=== PATIENT | male | born 1975 | race African-American/Black ===

== ENCOUNTER 2019-06-18 13:44 | Inpatient (IN) | payer MEDICAID ==
[~2019-06-18] VITALS: Ht 162.6 cm; Wt 58.1 kg
[2019-06-18] MEDS ORDERED: SODIUM CHLORIDE 0.9% 1,000 ML IV ONE (14:09)
[2019-06-18] MEDS ORDERED: LORAZEPAM 2MG/ML CPJ IV ONE ×3 (14:15→17:00)
[2019-06-18] MEDS ORDERED: LEVETIRACETAM 500MG PREMIX 100 ML IV ONE (14:30)
[2019-06-18] MEDS ORDERED: LORAZEPAM 2MG/ML CPJ IM STA (15:13)
[2019-06-18 15:55] LABS: HEMATOCRIT. 38.8 % (42.0-52.0); HEMOGLOBIN. 13.1 g/dL (14.0-18.0); MEAN CORPUSCULAR HEMOGLOBIN 33.9 pg (28.0-32.0); MEAN CORPUSCULAR VOLUME 100.5 fL (80.0-94.0); MEAN PLATELET VOLUME 9.1 fl (7.4-10.4); PLATELET 347 x1000/uL (130-400); RED BLOOD CELL COUNT 3.86 mill/uL (4.7-6.1); RED CELL DISTRIBUTION WIDTH 14.2 % (11.6-14.6)
[2019-06-18 16:00] LABS: CHLORIDE 112 mEq/L (98-107)
[2019-06-18 16:04] LABS: ETHANOL BLOOD < 10 mg/dL
[2019-06-18 16:13] LABS: CARBAMAZEPINE < 0.5 ug/mL (4-12); PHENOBARBITAL < 2.1 ug/mL (15.0-40.0); VALPROIC ACID < 3.0 ug/mL (50-100)
[2019-06-18 16:14] LABS: PLATELET ESTIMATE NORMAL
[2019-06-18] MEDS ORDERED: SODIUM CHLORIDE 0.9% 1000ML BAG (SEPSIS BOLUS) IV ONE (16:30)
[2019-06-18] MEDS ORDERED: ACYCLOVIR INJ 750 MG in DEXT 5% WATER 125 ML IV STA (16:50)
[2019-06-18] MEDS ORDERED: VANCOMYCIN 1 G PREMIX 200 ML IV STA (16:50)
[2019-06-18] MEDS ORDERED: HALOPERIDOL LACTATE 5MG/ML VIAL IM ONE (17:00)
[2019-06-18] MEDS ORDERED: CEFTRIAXONE 2 G PREMIX 50 ML IV ONE (17:00)
[2019-06-18] MEDS ORDERED: DEXAMETHASONE 10 MG/ML VIAL IV ONE (17:15)
[2019-06-18] MEDS ORDERED: DIPHENHYDRAMINE 50MG/ML VIAL ONE (17:27)
[2019-06-18] MEDS ORDERED: DIPHENHYDRAMINE 50MG/ML VIAL IV ONE (17:45)
[2019-06-18 18:00] LABS: CLARITY URINE TURBID (CLEAR); COLOR URINE YELLOW (YELLOW); KETONES URINE 1+ (NEGATIVE); LEUKOCYTE ESTERASE URINE NEGATIVE (NEGATIVE); NITRITE URINE NEGATIVE (NEGATIVE); OCCULT BLOOD URINE NEGATIVE (NEGATIVE); PROTEIN URINE NEGATIVE (NEGATIVE); SPECIFIC GRAVITY URINE 1.013 (1.005-1.030); UROBILINOGEN URINE 0.2 E.U./dL (0.2-1.0)
[2019-06-18 18:10] LABS: *AMPHETAMINES SCREEN URINE NEGATIVE (NEGATIVE); *BARBITURATES SCREEN URINE NEGATIVE (NEGATIVE); *BENZODIAZEPINES SCREEN URINE PRESUMTIVE POSITIVE (NEGATIVE); *COCAINE SCREEN URINE NEGATIVE (NEGATIVE); GLUCOSE CSF 101 mg/dL (41-75)
[2019-06-18 18:11] LABS: CANNABINOID URINE SCREEN PRESUMTIVE POSITIVE (NEGATIVE); METHADONE URINE SCREEN NEGATIVE (NEGATIVE); OPIATES URINE SCREEN PRESUMTIVE POSITIVE (NEGATIVE); PHENCYCLIDINE URINE SCREEN NEGATIVE (NEGATIVE)
[2019-06-18] MEDS ORDERED: CEFTRIAXONE 2 G in DEXTROSE 5% WATER 50 ML IV SCH (18:15)
[2019-06-18] MEDS ORDERED: DOCUSATE SODIUM 100MG CAPSULE PO PRN (20:15)
[2019-06-18] MEDS ORDERED: IPRATROPIUM/ALBUTEROL 0.5-3(2.5)MG/3ML NEB HHN PRN (20:15)
[2019-06-18] MEDS ORDERED: CLONIDINE 0.1MG TABLET PO PRN (20:15)
[2019-06-18] MEDS ORDERED: ACYCLOVIR INJ 500 MG in DEXT 5% WATER 100 ML IV SCH (20:15)
[2019-06-18] MEDS ORDERED: ONDANSETRON HCL 4MG/2ML INJ IV PRN (20:15)
[2019-06-18] MEDS ORDERED: LEVETIRACETAM 500 MG in SODIUM CHLORIDE 0.9% 100 ML IV SCH (20:15)
[2019-06-18] MEDS ORDERED: ACETAMINOPHEN 325MG TABLET PO PRN (20:15)
[2019-06-19] VITALS (9 sets, daily range): BP systolic 107–149; BP diastolic 57–85
[2019-06-19] MEDS: LORAZEPAM 2MG/ML CPJ IV PRN ×2 (00:56→02:59)
[2019-06-19] MEDS ORDERED: VANCOMYCIN 1250MG in DEXTROSE 5% WATER 250ML IV SCH (02:00)
[2019-06-19] MEDS: ACYCLOVIR INJ 500 MG in DEXT 5% WATER 100 ML IV SCH ×3 (02:59→17:58)
[2019-06-19 07:05] LABS: HEMATOCRIT. 35.7 % (42.0-52.0); HEMOGLOBIN. 12.2 g/dL (14.0-18.0); MEAN PLATELET VOLUME 9.6 fl (7.4-10.4); PLATELET 327 x1000/uL (130-400); RED CELL DISTRIBUTION WIDTH 14.5 % (11.6-14.6)
[2019-06-19] MEDS: LEVETIRACETAM 500 MG in SODIUM CHLORIDE 0.9% 100 ML IV SCH ×2 (10:32→21:36)
[2019-06-19] MEDS ORDERED: LACTULOSE 20G/30ML UDC PO NR (12:30)
[2019-06-19 12:59] LABS: CHLORIDE 106 mEq/L (98-107)
[2019-06-19] MEDS ORDERED: VANCOMYCIN 1 G PREMIX 200 ML IV SCH (14:00)
[2019-06-19] MEDS: CEFTRIAXONE 2 G in DEXTROSE 5% WATER 50 ML IV SCH (14:10)
[2019-06-19] MEDS: ENOXAPARIN 40MG/0.4ML SYR SUBCUT SCH (14:11)
[2019-06-19 14:20] LABS: PLATELET ESTIMATE NORMAL
[2019-06-19] MEDS: VANCOMYCIN 1250MG in DEXTROSE 5% WATER 250ML IV SCH ×2 (19:00→23:48)
[2019-06-20] VITALS (12 sets, daily range): BP systolic 96–134; BP diastolic 52–95
[2019-06-20] MEDS: CEFTRIAXONE 2 G in DEXTROSE 5% WATER 50 ML IV SCH ×2 (01:32→13:51)
[2019-06-20] MEDS ORDERED: KEPP500 PO (01:51)
[2019-06-20] MEDS: ACYCLOVIR INJ 500 MG in DEXT 5% WATER 100 ML IV SCH ×3 (02:13→17:15)
[2019-06-20] MEDS: VANCOMYCIN 1250MG in DEXTROSE 5% WATER 250ML IV SCH (06:49)
[2019-06-20 08:03] LABS: BASOPHILS % 0.4 % (0.0-2.0); EOSINOPHILS % 0.1 % (0.0-5.0); HEMOGLOBIN. 13.2 g/dL (14.0-18.0); LYMPHOCYTES % 18.6 % (20.0-50.0); MEAN CORPUSCULAR HEMOGLOBIN 33.6 pg (28.0-32.0); MEAN CORPUSCULAR VOLUME 99.3 fL (80.0-94.0); MEAN PLATELET VOLUME 9.7 fl (7.4-10.4); MONOCYTES % 7.2 % (2.0-8.0); NEUTROPHILS % 73.7 % (40.0-76.0); PLATELET 318 x1000/uL (130-400); RED BLOOD CELL COUNT 3.93 mill/uL (4.7-6.1); RED CELL DISTRIBUTION WIDTH 14.1 % (11.6-14.6)
[2019-06-20 08:06] LABS: CHLORIDE 105 mEq/L (98-107)
[2019-06-20 08:07] LABS: HIV SCREEN 4G Non Reactive (Non Reactive)
[2019-06-20] MEDS: ENOXAPARIN 40MG/0.4ML SYR SUBCUT SCH (09:32)
[2019-06-20] MEDS: LEVETIRACETAM 500 MG in SODIUM CHLORIDE 0.9% 100 ML IV SCH ×2 (09:32→21:36)
[2019-06-20] MEDS: LACTULOSE 20G/30ML UDC PO SCH ×2 (13:51→22:06)
[2019-06-20] MEDS: VANCOMYCIN 1 G PREMIX 200 ML IV SCH (18:50)
[2019-06-20 18:52] LABS: HEPATITIS B SURFACE ANTIGEN NEGATIVE
[2019-06-20 18:56] LABS: CREATINE KINASE 11522 IU/L (39-308)
[2019-06-20 19:22] LABS: HEPATITIS A AB IGM NEGATIVE (NEGATIVE)
[2019-06-20] MEDS: HYDROCODONE/ACETAMINOPHEN 5/325MG TABLET PO PRN (21:37)
[2019-06-21] VITALS (9 sets, daily range): BP systolic 104–128; BP diastolic 64–84
[2019-06-21] MEDS: CEFTRIAXONE 2 G in DEXTROSE 5% WATER 50 ML IV SCH ×2 (00:33→16:41)
[2019-06-21] MEDS: ACYCLOVIR INJ 500 MG in DEXT 5% WATER 100 ML IV SCH ×3 (02:34→17:35)
[2019-06-21] MEDS: HYDROCODONE/ACETAMINOPHEN 5/325MG TABLET PO PRN (02:34)
[2019-06-21] MEDS: VANCOMYCIN 1 G PREMIX 200 ML IV SCH ×3 (04:55→18:47)
[2019-06-21] MEDS: LACTULOSE 20G/30ML UDC PO SCH ×3 (05:07→21:29)
[2019-06-21 07:02] LABS: CHLORIDE 108 mEq/L (98-107)
[2019-06-21 07:09] LABS: BASOPHILS % 0.3 % (0.0-2.0); EOSINOPHILS % 0.7 % (0.0-5.0); HEMATOCRIT. 34.2 % (42.0-52.0); HEMOGLOBIN. 11.8 g/dL (14.0-18.0); MEAN CORPUSCULAR HEMOGLOBIN 34.1 pg (28.0-32.0); MEAN CORPUSCULAR VOLUME 98.6 fL (80.0-94.0); MEAN PLATELET VOLUME 8.8 fl (7.4-10.4); MONOCYTES % 11.4 % (2.0-8.0); NEUTROPHILS % 51.6 % (40.0-76.0); PLATELET 295 x1000/uL (130-400); RED BLOOD CELL COUNT 3.47 mill/uL (4.7-6.1)
[2019-06-21] MEDS: ENOXAPARIN 40MG/0.4ML SYR SUBCUT SCH (09:48)
[2019-06-21] MEDS: SODIUM CHLORIDE 0.9% 1,000 ML IV SCH ×2 (09:56→19:30)
[2019-06-21] MEDS: CITRIC ACID/SODIUM CITRATE SOLN 15ML UDC PO SCH ×3 (10:00→21:30)
[2019-06-21] MEDS ORDERED: POTASSIUM CHLORIDE 20MEQ TABLET SR PO NR (10:00)
[2019-06-21] MEDS: LEVETIRACETAM 500 MG in SODIUM CHLORIDE 0.9% 100 ML IV SCH (11:02)
[2019-06-21 12:12] LABS: CREATINE KINASE 12494 IU/L (39-308)
[2019-06-21] MEDS ORDERED: LEVETIRACETAM 500MG TABLET PO SCH (21:00)
[2019-06-21] MEDS: LEVETIRACETAM 250MG TABLET PO SCH (21:30)
[2019-06-22] VITALS (12 sets, daily range): BP systolic 116–143; BP diastolic 67–87
[2019-06-22] MEDS: SODIUM CHLORIDE 0.9% 1,000 ML IV SCH ×3 (01:30→17:02)
[2019-06-22] MEDS: LACTULOSE 20G/30ML UDC PO SCH ×3 (05:56→22:40)
[2019-06-22] MEDS: CITRIC ACID/SODIUM CITRATE SOLN 15ML UDC PO SCH ×2 (05:56→22:40)
[2019-06-22 06:42] LABS: BASOPHILS % 0.9 % (0.0-2.0); EOSINOPHILS % 1.3 % (0.0-5.0); HEMATOCRIT. 33.6 % (42.0-52.0); HEMOGLOBIN. 11.9 g/dL (14.0-18.0); LYMPHOCYTES % 34.1 % (20.0-50.0); MEAN CORPUSCULAR HEMOGLOBIN 34.6 pg (28.0-32.0); MEAN CORPUSCULAR VOLUME 97.7 fL (80.0-94.0); MEAN PLATELET VOLUME 9.1 fl (7.4-10.4); MONOCYTES % 10.6 % (2.0-8.0); NEUTROPHILS % 53.1 % (40.0-76.0); PLATELET 295 x1000/uL (130-400); RED BLOOD CELL COUNT 3.44 mill/uL (4.7-6.1); RED CELL DISTRIBUTION WIDTH 13.5 % (11.6-14.6)
[2019-06-22 07:31] LABS: CHLORIDE 107 mEq/L (98-107)
[2019-06-22 07:41] LABS: PHOSPHORUS 3.1 mg/dL (2.5-4.9)
[2019-06-22] MEDS: LEVETIRACETAM 250MG TABLET PO SCH ×2 (09:57→22:40)
[2019-06-22] MEDS: ENOXAPARIN 40MG/0.4ML SYR SUBCUT SCH (09:58)
[2019-06-22 20:06] LABS: FOLIC ACID (FOLATE) SERUM 14.5 ng/mL (>5.38)
[2019-06-23] VITALS (10 sets, daily range): BP systolic 55–127; BP diastolic 32–98
[2019-06-23] MEDS: SODIUM CHLORIDE 0.9% 1,000 ML IV SCH ×2 (01:27→09:23)
[2019-06-23] MEDS: LACTULOSE 20G/30ML UDC PO SCH ×2 (07:03→14:00)
[2019-06-23 07:54] LABS: BASOPHILS % 0.5 % (0.0-2.0); EOSINOPHILS % 2.6 % (0.0-5.0); HEMATOCRIT. 35.4 % (42.0-52.0); HEMOGLOBIN. 12.2 g/dL (14.0-18.0); LYMPHOCYTES % 39.7 % (20.0-50.0); MEAN CORPUSCULAR HEMOGLOBIN 34.1 pg (28.0-32.0); MEAN CORPUSCULAR VOLUME 99.1 fL (80.0-94.0); MEAN PLATELET VOLUME 9.1 fl (7.4-10.4); MONOCYTES % 11.9 % (2.0-8.0); NEUTROPHILS % 45.3 % (40.0-76.0); PLATELET 301 x1000/uL (130-400); RED BLOOD CELL COUNT 3.57 mill/uL (4.7-6.1); RED CELL DISTRIBUTION WIDTH 13.8 % (11.6-14.6)
[2019-06-23 08:13] LABS: CHLORIDE 108 mEq/L (98-107)
[2019-06-23 08:23] LABS: PHOSPHORUS 3.6 mg/dL (2.5-4.9)
[2019-06-23 08:39] LABS: CREATINE KINASE 4940 IU/L (39-308)
[2019-06-23] MEDS: CITRIC ACID/SODIUM CITRATE SOLN 15ML UDC PO SCH ×2 (09:00→09:23)
[2019-06-23] MEDS: LEVETIRACETAM 250MG TABLET PO SCH (09:23)
[2019-06-23] MEDS: ENOXAPARIN 40MG/0.4ML SYR SUBCUT SCH (09:23)
[2019-06-23] MEDS ORDERED: CYANOCOBALAMIN 1000MCG/ML VIAL IM NR (12:30)
[2019-06-23] MEDS ORDERED: SORBITOL 70% SOLN 30ML PO PRN (12:45)
[2019-06-23] MEDS ORDERED: MAGNESIUM 2 G PREMIX 50 ML IV NR (13:30)
[2019-06-23] MEDS ORDERED: LEVE750T66 MT (16:36)
[2019-06-23] MEDS ORDERED: LEVE250T2 MT (16:43)
== END 2019-06-23 17:52 | disposition home or self-care (01) | DRG 720 ==
LOC: ER 13:44 → 5EST 17:08 → ENRESERV 18:39 → 5EST 22:53
PROVIDERS: ADMIT Internal Medicine; ATTEND Internal Medicine
DX: A41.9 Sepsis, unspecified organism (principal); G92 Toxic encephalopathy; E87.2 Acidosis; E44.0 Moderate protein-calorie malnutrition; M62.82 Rhabdomyolysis; E83.42 Hypomagnesemia; G40.409 Other generalized epilepsy and epileptic syndromes, not intractable, without status epilepticus; D53.9 Nutritional anemia, unspecified; K72.90 Hepatic failure, unspecified without coma; R74.0 Nonspecific elevation of levels of transaminase and lactic acid dehydrogenase [LDH]; E53.8 Deficiency of other specified B group vitamins; E87.6 Hypokalemia; F12.90 Cannabis use, unspecified, uncomplicated; Z78.1 Physical restraint status; Z79.899 Other long term (current) drug therapy; Z82.49 Family history of ischemic heart disease and other diseases of the circulatory system; Z91.14 Patient's other noncompliance with medication regimen; Z68.22 Body mass index [BMI] 22.0-22.9, adult
CPT/HCPCS: 36415; 70551; 71045; 76700; 80048; 80076; 80156; 80165; 80184; 80185; 80202; 80305; 80320; 81003; 82140; 82550; 82607; 82746; 82945; 83605; 83735; 84100; 84145; 84157; 84484; 86705; 86709; 86803; 87070; 87340; 87389; 87529; 93005; 93970; 99291; J0133; J0696; J1100; J1200; J1630; J1650; J1953; J2060; J3370; J3420; J3475; J7030; J7040; J7050; J7060; G0480

== ENCOUNTER 2020-12-01 18:41 | Emergency (ER) | payer MEDICAID ==
[~2020-12-01] VITALS: Ht 185.4 cm; Wt 80.0 kg
[~2020-12-01 18:41] MED LIST: LEVE250T2 MT
[2020-12-01] MEDS ORDERED: LEVETIRACETAM 1000MG PREMIX 100 ML IV ONE (21:00)
[2020-12-01 21:56] LABS: BASOPHILS % 0.3 % (0.0-2.0); EOSINOPHILS % 0.1 % (0.0-5.0); HEMATOCRIT. 34.8 % (42.0-52.0); HEMOGLOBIN. 12.1 g/dL (14.0-18.0); LYMPHOCYTES % 16.1 % (20.0-50.0); MEAN CORPUSCULAR HEMOGLOBIN 34.3 pg (28.0-32.0); MEAN CORPUSCULAR VOLUME 98.7 fL (80.0-94.0); MEAN PLATELET VOLUME 8.3 fl (7.4-10.4); MONOCYTES % 6.3 % (2.0-8.0); NEUTROPHILS % 77.2 % (40.0-76.0); PLATELET 330 x1000/uL (130-400); RED BLOOD CELL COUNT 3.52 mill/uL (4.7-6.1); RED CELL DISTRIBUTION WIDTH 14.5 % (11.6-14.6)
[2020-12-01 22:03] LABS: CHLORIDE 107 mEq/L (98-107)
[2020-12-01 22:07] LABS: ETHANOL BLOOD < 10 mg/dL
[2020-12-01 22:45] LABS: CLARITY URINE CLEAR (CLEAR); COLOR URINE YELLOW (YELLOW); KETONES URINE TRACE (NEGATIVE); LEUKOCYTE ESTERASE URINE NEGATIVE (NEGATIVE); NITRITE URINE NEGATIVE (NEGATIVE); OCCULT BLOOD URINE NEGATIVE (NEGATIVE); PH URINE 6.5 (4.5-8.0); PROTEIN URINE 1+ (NEGATIVE); UROBILINOGEN URINE 0.2 E.U./dL (0.2-1.0)
[2020-12-01] MEDS ORDERED: KEPP500 MT (22:49)
[2020-12-01 22:55] LABS: *AMPHETAMINES SCREEN URINE NEGATIVE (NEGATIVE); *BARBITURATES SCREEN URINE NEGATIVE (NEGATIVE); *BENZODIAZEPINES SCREEN URINE NEGATIVE (NEGATIVE); *COCAINE SCREEN URINE NEGATIVE (NEGATIVE); CANNABINOID URINE SCREEN PRESUMTIVE POSITIVE (NEGATIVE); METHADONE URINE SCREEN NEGATIVE (NEGATIVE); OPIATES URINE SCREEN NEGATIVE (NEGATIVE); PHENCYCLIDINE URINE SCREEN NEGATIVE (NEGATIVE)
[2020-12-02 00:15] VITALS: BP 117/80
== END 2020-12-02 00:53 | disposition home or self-care (01) ==
LOC: ER 18:41
DX: G40.909 Epilepsy, unspecified, not intractable, without status epilepticus (principal); Z79.899 Other long term (current) drug therapy
CPT/HCPCS: 36415; 80053; 80305; 80320; 81003; 85025; 96365; 99284; J1953; G0480

== ENCOUNTER 2021-02-28 11:10 | Emergency (ER) | payer MEDICAID ==
[~2021-02-28] VITALS: Ht 172.7 cm; Wt 72.0 kg
[~2021-02-28 11:10] MED LIST changes: +KEPP500 MT
[2021-02-28] MEDS ORDERED: TETANUS, DIPHTHERIA, PERTUSSIS VAC/PF 0.5ML (>7YR OLD) IM ONE (11:30)
[2021-02-28] MEDS ORDERED: HYDROCODONE/ACETAMINOPHEN 5/325MG TABLET PO ONE (11:30)
[2021-02-28] MEDS ORDERED: ONDANSETRON 4MG ODT PO ONE (11:30)
[2021-02-28] MEDS ORDERED: BACITRACIN 15GM TUBE TOP ONE (14:15)
[2021-02-28] MEDS ORDERED: BACITRACIN ZINC OINT UDPKT TOP SCH (14:15)
[2021-02-28] MEDS ORDERED: IBUP-2029 MT (15:54)
[2021-02-28] MEDS ORDERED: BO1 TP (15:54)
[2021-02-28] MEDS ORDERED: HYDR-4346 MT (15:54)
[2021-02-28 16:10] VITALS: BP 122/74
== END 2021-02-28 16:13 | disposition home or self-care (01) ==
LOC: ER 12:00
DX: S40.812A Abrasion of left upper arm, initial encounter (principal); R07.89 Other chest pain; M54.5 Low back pain; S89.82XA Other specified injuries of left lower leg, initial encounter; S50.312A Abrasion of left elbow, initial encounter; S49.82XA Other specified injuries of left shoulder and upper arm, initial encounter; S50.812A Abrasion of left forearm, initial encounter; M25.552 Pain in left hip; M79.642 Pain in left hand; G89.11 Acute pain due to trauma; R26.89 Other abnormalities of gait and mobility; R03.0 Elevated blood-pressure reading, without diagnosis of hypertension; Z23 Encounter for immunization; G40.909 Epilepsy, unspecified, not intractable, without status epilepticus; V06.1 Pedestrian injured in collision with other nonmotor vehicle in traffic accident; Y93.I9 Activity, other involving external motion; Y92.488 Other paved roadways as the place of occurrence of the external cause
CPT/HCPCS: 70450; 71250; 72100; 72125; 73030; 73080; 73090; 73130; 73502; 73552; 73560; 73590; 90471; 90715; 93005; 99285; L1830; Q0162; Z7610

== ENCOUNTER 2021-04-21 15:58 | Emergency (ER) | payer MEDICAID ==
[~2021-04-21] VITALS: Ht 177.8 cm; Wt 75.0 kg
[~2021-04-21 15:58] MED LIST changes: +BO1 TP; +HYDR-4346 MT; +IBUP-2029 MT
[2021-04-21] MEDS ORDERED: LORAZEPAM 1MG TABLET PO ONE (16:45)
[2021-04-21] MEDS ORDERED: LEVETIRACETAM 1000MG PREMIX 100 ML IV ONE (16:45)
[2021-04-21 17:13] LABS: HEMATOCRIT. 38.5 % (42.0-52.0); HEMOGLOBIN. 12.8 g/dL (14.0-18.0); MEAN CORPUSCULAR HEMOGLOBIN 33.8 pg (28.0-32.0); MEAN CORPUSCULAR VOLUME 101.7 fL (80.0-94.0); MEAN PLATELET VOLUME 9.3 fl (7.4-10.4); PLATELET 290 x1000/uL (130-400); RED BLOOD CELL COUNT 3.78 mill/uL (4.7-6.1); RED CELL DISTRIBUTION WIDTH 14.8 % (11.6-14.6)
[2021-04-21 17:22] LABS: CHLORIDE 106 mEq/L (98-107)
[2021-04-21 17:40] LABS: PLATELET ESTIMATE NORMAL
[2021-04-21] MEDS ORDERED: IBUP-2029 MT (19:09)
[2021-04-21] MEDS ORDERED: IBUPROFEN 600MG TABLET PO ONE (19:15)
[2021-04-21 19:45] VITALS: BP 123/78
== END 2021-04-21 19:50 | disposition home or self-care (01) ==
LOC: ER 15:58
DX: G40.509 Epileptic seizures related to external causes, not intractable, without status epilepticus (principal); I49.9 Cardiac arrhythmia, unspecified
CPT/HCPCS: 36415; 80053; 85025; 93005; 96374; 99284; J1953

== ENCOUNTER 2021-09-16 12:29 | Emergency (ER) | payer MEDICAID, OTHER ==
[~2021-09-16] VITALS: Ht 170.2 cm; Wt 75.0 kg
[2021-09-16] MEDS ORDERED: LEVETIRACETAM 500MG PREMIX 200 ML IV ONE (13:15)
[2021-09-16] MEDS ORDERED: SODIUM CHLORIDE 0.9% 1,000 ML IV ONE (13:15)
[2021-09-16 15:54] LABS: HEMATOCRIT. 37.6 % (42.0-52.0); HEMOGLOBIN. 12.8 g/dL (14.0-18.0); MEAN CORPUSCULAR HEMOGLOBIN 33.4 pg (28.0-32.0); MEAN CORPUSCULAR VOLUME 98.3 fL (80.0-94.0); MEAN PLATELET VOLUME 7.9 fl (7.4-10.4); PLATELET 535 x1000/uL (130-400); RED BLOOD CELL COUNT 3.83 mill/uL (4.7-6.1); RED CELL DISTRIBUTION WIDTH 13.6 % (11.6-14.6)
[2021-09-16 15:56] LABS: CHLORIDE 108 mEq/L (98-107)
[2021-09-16 16:03] LABS: ETHANOL BLOOD < 10 mg/dL
[2021-09-16 16:06] LABS: CREATINE KINASE 491 IU/L (39-308)
[2021-09-16 16:16] LABS: PLATELET ESTIMATE INCREASED
[2021-09-16 18:30] VITALS: BP 134/87
[2021-09-16 18:39] LABS: CLARITY URINE CLEAR (CLEAR); COLOR URINE YELLOW (YELLOW); KETONES URINE NEGATIVE (NEGATIVE); LEUKOCYTE ESTERASE URINE NEGATIVE (NEGATIVE); NITRITE URINE NEGATIVE (NEGATIVE); OCCULT BLOOD URINE NEGATIVE (NEGATIVE); PROTEIN URINE TRACE (NEGATIVE); SPECIFIC GRAVITY URINE 1.006 (1.005-1.030); UROBILINOGEN URINE 0.2 E.U./dL (0.2-1.0)
[2021-09-16 18:54] LABS: METHADONE URINE SCREEN NEGATIVE (NEGATIVE); OPIATES URINE SCREEN NEGATIVE (NEGATIVE)
[2021-09-16 18:55] LABS: *AMPHETAMINES SCREEN URINE NEGATIVE (NEGATIVE); *BARBITURATES SCREEN URINE NEGATIVE (NEGATIVE); *BENZODIAZEPINES SCREEN URINE PRESUMTIVE POSITIVE (NEGATIVE); *COCAINE SCREEN URINE NEGATIVE (NEGATIVE); CANNABINOID URINE SCREEN PRESUMTIVE POSITIVE (NEGATIVE); PHENCYCLIDINE URINE SCREEN NEGATIVE (NEGATIVE)
== END 2021-09-16 19:30 | disposition home or self-care (01) ==
LOC: ER 12:29
DX: R56.9 Unspecified convulsions (principal); Z91.14 Patient's other noncompliance with medication regimen; D53.9 Nutritional anemia, unspecified
CPT/HCPCS: 36415; 70450; 71045; 80053; 80305; 80307; 80320; 80329; 81003; 82140; 82550; 82962; 85025; 96365; 99285; J1953; J7030; G0480

== ENCOUNTER 2022-03-03 14:44 | Inpatient (IN) | payer MEDICAID, OTHER ==
[~2022-03-03] VITALS: Ht 165.1 cm; Wt 61.2 kg
[2022-03-03] MEDS ORDERED: MIDAZOLAM HCL 2 MG/2 ML VIAL IM ONE (15:30)
[2022-03-03] MEDS ORDERED: LEVETIRACETAM 500MG PREMIX 100 ML IV ONE ×2 (15:30)
[2022-03-03 15:39] LABS: HEMATOCRIT. 44.1 % (42.0-52.0); HEMOGLOBIN. 14.5 g/dL (14.0-18.0); MEAN CORPUSCULAR HEMOGLOBIN 33.8 pg (28.0-32.0); MEAN CORPUSCULAR VOLUME 102.7 fL (80.0-94.0); MEAN PLATELET VOLUME 8.9 fl (7.4-10.4); PLATELET 382 x1000/uL (130-400); RED BLOOD CELL COUNT 4.29 mill/uL (4.7-6.1)
[2022-03-03 15:48] LABS: CHLORIDE 108 mEq/L (98-107)
[2022-03-03 15:57] LABS: ETHANOL BLOOD < 10 mg/dL
[2022-03-03 16:13] LABS: CARBAMAZEPINE < 0.5 ug/mL (4-12)
[2022-03-03] MEDS ORDERED: SODIUM CHLORIDE 0.9% 1,000 ML IV ONE (16:30)
[2022-03-03 16:52] LABS: PLATELET ESTIMATE NORMAL
[2022-03-03] MEDS: LEVETIRACETAM 500MG PREMIX 100 ML IV NR ×3 (17:50→18:53)
[2022-03-03] MEDS ORDERED: DIPHENHYDRAMINE 50MG/ML VIAL IM ONE (18:00)
[2022-03-03] MEDS ORDERED: HALOPERIDOL LACTATE 5MG/ML VIAL IM ONE (18:00)
[2022-03-03 19:54] LABS: CLARITY URINE CLOUDY (CLEAR); COLOR URINE YELLOW (YELLOW); KETONES URINE 1+ (NEGATIVE); LEUKOCYTE ESTERASE URINE NEGATIVE (NEGATIVE); NITRITE URINE NEGATIVE (NEGATIVE); OCCULT BLOOD URINE 1+ (NEGATIVE); PH URINE 5.5 (4.5-8.0); PROTEIN URINE 1+ (NEGATIVE); SPECIFIC GRAVITY URINE 1.009 (1.005-1.030); UROBILINOGEN URINE 0.2 E.U./dL (0.2-1.0)
[2022-03-03 20:06] LABS: *AMPHETAMINES SCREEN URINE NEGATIVE (NEGATIVE); *BARBITURATES SCREEN URINE NEGATIVE (NEGATIVE); *BENZODIAZEPINES SCREEN URINE PRESUMTIVE POSITIVE (NEGATIVE); *COCAINE SCREEN URINE NEGATIVE (NEGATIVE); CANNABINOID URINE SCREEN PRESUMTIVE POSITIVE (NEGATIVE); METHADONE URINE SCREEN NEGATIVE (NEGATIVE); OPIATES URINE SCREEN NEGATIVE (NEGATIVE); PHENCYCLIDINE URINE SCREEN NEGATIVE (NEGATIVE)
[2022-03-04] VITALS: BP 112/70
[2022-03-04 04:00] VITALS: BP 109/64
[2022-03-04 07:44] LABS: BASOPHILS % 0.1 % (0.0-2.0); HEMATOCRIT. 41.9 % (42.0-52.0); HEMOGLOBIN. 13.7 g/dL (14.0-18.0); LYMPHOCYTES % 8.3 % (20.0-50.0); MEAN CORPUSCULAR HEMOGLOBIN 33.2 pg (28.0-32.0); MEAN CORPUSCULAR VOLUME 101.4 fL (80.0-94.0); MEAN PLATELET VOLUME 8.4 fl (7.4-10.4); MONOCYTES % 5.2 % (2.0-8.0); NEUTROPHILS % 86.4 % (40.0-76.0); PLATELET 310 x1000/uL (130-400); RED BLOOD CELL COUNT 4.13 mill/uL (4.7-6.1)
[2022-03-04 08:00] VITALS: BP 118/74
[2022-03-04 08:07] LABS: CHLORIDE 105 mEq/L (98-107)
[2022-03-04] MEDS: ENOXAPARIN 40MG/0.4ML SYR SUBCUT SCH (08:38)
[2022-03-04] MEDS: LEVETIRACETAM 500MG TABLET PO SCH ×2 (08:38→17:55)
[2022-03-04 12:00] VITALS: BP 117/80
[2022-03-04 16:00] VITALS: BP 115/75
[2022-03-04 20:00] VITALS: BP 123/79
[2022-03-05] VITALS: BP 117/75
[2022-03-05 04:00] VITALS: BP 108/75
[2022-03-05 08:00] VITALS: BP 118/74
[2022-03-05] MEDS ORDERED: CEFTRIAXONE 1 G PREMIX 50 ML IV SCH (08:30)
[2022-03-05] MEDS: LEVETIRACETAM 500MG TABLET PO SCH (09:39)
[2022-03-05] MEDS: ENOXAPARIN 40MG/0.4ML SYR SUBCUT SCH (09:39)
[2022-03-05] MEDS ORDERED: CEFTRIAXONE 1,000 MG in DEXTROSE 5% WATER 50 ML IV SCH (10:00)
[2022-03-05 12:00] VITALS: BP 114/73
[2022-03-05 12:18] LABS: BASOPHILS % 0.5 % (0.0-2.0); EOSINOPHILS % 0.2 % (0.0-5.0); HEMATOCRIT. 40.8 % (42.0-52.0); LYMPHOCYTES % 20.8 % (20.0-50.0); MEAN CORPUSCULAR HEMOGLOBIN 33.7 pg (28.0-32.0); MEAN CORPUSCULAR VOLUME 98.5 fL (80.0-94.0); MEAN PLATELET VOLUME 8.9 fl (7.4-10.4); MONOCYTES % 8.4 % (2.0-8.0); NEUTROPHILS % 70.1 % (40.0-76.0); PLATELET 326 x1000/uL (130-400); RED BLOOD CELL COUNT 4.15 mill/uL (4.7-6.1); RED CELL DISTRIBUTION WIDTH 13.7 % (11.6-14.6)
[2022-03-05 12:23] LABS: CHLORIDE 100 mEq/L (98-107)
[2022-03-05] MEDS ORDERED: KEPP500 MT (14:03)
[2022-03-05 14:49] VITALS: BP 114/73
[2022-03-05 16:00] VITALS: BP 114/67
== END 2022-03-05 16:01 | disposition home or self-care (01) | DRG 53 ==
LOC: ER 14:54 → 7WST 20:11 → ENRESERV 23:02
PROVIDERS: ADMIT Internal Medicine; ATTEND Internal Medicine
DX: G40.909 Epilepsy, unspecified, not intractable, without status epilepticus (principal); E87.2 Acidosis; D72.829 Elevated white blood cell count, unspecified; Z79.899 Other long term (current) drug therapy; Z79.1 Long term (current) use of non-steroidal anti-inflammatories (NSAID)
CPT/HCPCS: 36415; 71045; 80048; 80053; 80156; 80305; 80320; 81003; 83605; 84145; 84484; 85025; 99285; J0696; J1200; J1630; J1650; J1953; J2250; J7030; J7060; G0480

== ENCOUNTER 2022-08-19 09:05 | Emergency (ER) | payer MEDICAID, OTHER ==
[~2022-08-19] VITALS: Ht 182.9 cm; Wt 70.0 kg
[~2022-08-19 09:05] MED LIST changes: -LEVE250T2 MT
[2022-08-19] MEDS ORDERED: ACETAMINOPHEN 325MG TABLET PO STA (09:19)
[2022-08-19] MEDS ORDERED: ONDANSETRON HCL 4MG/2ML INJ IV STA (09:19)
[2022-08-19] MEDS ORDERED: LEVETIRACETAM 1000MG PREMIX 100 ML IV ONE (09:30)
[2022-08-19] MEDS ORDERED: SODIUM CHLORIDE 0.9% 1,000 ML IV ONE (09:30)
[2022-08-19 10:02] LABS: BASOPHILS % 0.3 % (0.0-2.0); EOSINOPHILS % 0.3 % (0.0-5.0); HEMATOCRIT. 39.5 % (42.0-52.0); HEMOGLOBIN. 13.6 g/dL (14.0-18.0); LYMPHOCYTES % 15.7 % (20.0-50.0); MEAN CORPUSCULAR HEMOGLOBIN 34.5 pg (28.0-32.0); MEAN CORPUSCULAR VOLUME 100.3 fL (80.0-94.0); MEAN PLATELET VOLUME 9.4 fl (7.4-10.4); MONOCYTES % 6.1 % (2.0-8.0); NEUTROPHILS % 77.6 % (40.0-76.0); PLATELET 389 x1000/uL (130-400); RED BLOOD CELL COUNT 3.94 mill/uL (4.7-6.1); RED CELL DISTRIBUTION WIDTH 14.6 % (11.6-14.6)
[2022-08-19 10:49] LABS: CHLORIDE 110 mEq/L (98-107)
[2022-08-19 10:56] LABS: ETHANOL BLOOD < 10 mg/dL
[2022-08-19 16:10] VITALS: BP 98/56
== END 2022-08-19 16:12 | disposition home or self-care (01) ==
LOC: ER 09:32
DX: R56.9 Unspecified convulsions (principal); Z79.899 Other long term (current) drug therapy
CPT/HCPCS: 36415; 80053; 80320; 84484; 85025; 93005; 96361; 96365; 96375; 99284; J1953; J2405; J7030; G0480

== ENCOUNTER 2022-11-01 15:25 | Emergency (ER) | payer MEDICAID ==
[~2022-11-01] VITALS: Ht 190.5 cm; Wt 97.0 kg
[2022-11-01] MEDS ORDERED: MIDAZOLAM HCL 2 MG/2 ML VIAL IV ONE (17:00)
[2022-11-01] MEDS ORDERED: LEVETIRACETAM 1000MG PREMIX 100 ML IV ONE (17:00)
[2022-11-01 19:45] LABS: HEMATOCRIT. 40.9 % (42.0-52.0); HEMOGLOBIN. 14.1 g/dL (14.0-18.0); MEAN CORPUSCULAR HEMOGLOBIN 34.4 pg (28.0-32.0); MEAN CORPUSCULAR VOLUME 99.9 fL (80.0-94.0); MEAN PLATELET VOLUME 9.2 fl (7.4-10.4); PLATELET 390 x1000/uL (130-400); RED BLOOD CELL COUNT 4.09 mill/uL (4.7-6.1); RED CELL DISTRIBUTION WIDTH 14.4 % (11.6-14.6)
[2022-11-01 19:54] LABS: CHLORIDE 112 mEq/L (98-107)
[2022-11-01 20:04] LABS: ETHANOL BLOOD < 10 mg/dL
[2022-11-01 20:08] LABS: PLATELET ESTIMATE NORMAL
[2022-11-01 20:36] LABS: CLARITY URINE CLEAR (CLEAR); COLOR URINE YELLOW (YELLOW); KETONES URINE 2+ (NEGATIVE); LEUKOCYTE ESTERASE URINE NEGATIVE (NEGATIVE); NITRITE URINE NEGATIVE (NEGATIVE); OCCULT BLOOD URINE 2+ (NEGATIVE); PROTEIN URINE NEGATIVE (NEGATIVE); UROBILINOGEN URINE 0.2 E.U./dL (0.2-1.0)
[2022-11-01 20:47] LABS: *AMPHETAMINES SCREEN URINE NEGATIVE (NEGATIVE); *BARBITURATES SCREEN URINE NEGATIVE (NEGATIVE); *BENZODIAZEPINES SCREEN URINE PRESUMTIVE POSITIVE (NEGATIVE); *COCAINE SCREEN URINE NEGATIVE (NEGATIVE); CANNABINOID URINE SCREEN PRESUMTIVE POSITIVE (NEGATIVE); METHADONE URINE SCREEN NEGATIVE (NEGATIVE); OPIATES URINE SCREEN NEGATIVE (NEGATIVE); PHENCYCLIDINE URINE SCREEN NEGATIVE (NEGATIVE)
[2022-11-01] MEDS ORDERED: SODIUM CHLORIDE 0.9% 1,000 ML IV ONE (21:45)
[2022-11-01 23:52] VITALS: BP 123/78
[2022-11-01] MEDS ORDERED: KEPP500 MT (23:58)
== END 2022-11-02 00:39 | disposition home or self-care (01) ==
LOC: ER 15:25
DX: R68.89 Other general symptoms and signs (principal); Z79.899 Other long term (current) drug therapy
CPT/HCPCS: 36415; 80053; 80305; 80320; 81003; 85025; 96361; 96365; 96375; 99285; J1953; J2250; J7030; Z7610; G0480

== ENCOUNTER 2023-04-16 04:42 | Emergency (ER) | payer MEDICAID ==
[~2023-04-16] VITALS: Ht 175.3 cm; Wt 73.0 kg
[2023-04-16 04:44] VITALS: O2SAT 98
[2023-04-16] MEDS ORDERED: CARBAMAZEPINE 200MG TABLET PO ONE (06:00)
[2023-04-16 07:01] LABS: HEMATOCRIT. 38.1 % (42.0-52.0); HEMOGLOBIN. 12.7 g/dL (14.0-18.0); MEAN CORPUSCULAR HEMOGLOBIN 33.6 pg (28.0-32.0); MEAN CORPUSCULAR HGB CONC 33.5 g/dL (31.0-37.0); MEAN CORPUSCULAR VOLUME 100.5 fL (80.0-94.0); MEAN PLATELET VOLUME 8.6 fl (7.4-10.4); PLATELET 382 x1000/uL (130-400); RED BLOOD CELL COUNT 3.79 mill/uL (4.7-6.1); WHITE BLOOD COUNT 19.9 x1000/uL (4.5-11.0)
[2023-04-16 07:05] LABS: CHLORIDE 111 mEq/L (98-107); INDEX HEMOLYSI 1 (1-3); INDEX ICTERIC 1 (1-4); INDEX LIPEMIC 1 (1-3); POTASSIUM 3.8 mEq/L (3.5-5.1); SODIUM 139 mEq/L (136-145)
[2023-04-16 07:06] LABS: DIFFERENTIAL COMMENT 1
[2023-04-16 07:14] LABS: AMMONIA 17 uMol/L (<32)
[2023-04-16 07:17] LABS: ALANINE AMINOTRANSFERASE 30 IU/L (13-61); ALBUMIN 4.1 g/dL (3.4-5.0); ASPARTATE AMINOTRANSFERASE 19 IU/L (15-37); BILIRUBIN TOTAL 0.3 mg/dL (0.1-1.0); CALCIUM 8.4 mg/dL (8.5-10.1); CARBON DIOXIDE 22 mEq/L (21-32); CREATININE 1.1 mg/dL (0.6-1.3); ETHANOL BLOOD < 10 mg/dL (-10); GLUCOSE 109 mg/dL (70-105); PROTEIN TOTAL 7.2 g/dL (6.0-8.3); UREA NITROGEN BLOOD 10 mg/dL (7-21)
[2023-04-16 07:18] LABS: PHENYTOIN < 0.4 ug/mL (10-20)
[2023-04-16] MEDS ORDERED: KEPP500 MT (09:13)
[2023-04-16] MEDS ORDERED: LEVETIRACETAM 500MG TABLET PO SCH (09:15)
[2023-04-16 09:18] VITALS: BP 113/71; PULSE 93; RESP 21; TEMP 98.8
[2023-04-16] MEDS ORDERED: IBUPROFEN 800MG TABLET PO ONE (09:30)
[2023-04-16] MEDS ORDERED: IBUPROFEN 400MG TABLET PO NR (09:45)
[2023-04-16 09:52] LABS: PLATELET ESTIMATE NORMAL
== END 2023-04-16 10:06 | disposition home or self-care (01) ==
LOC: ER 04:42
DX: G40.909 Epilepsy, unspecified, not intractable, without status epilepticus (principal)
CPT/HCPCS: 80053; 80320; 82140; 80185; 83690; 80165; 85025; 36415; 70450; 99284; Z7610 ×4; G0480

== ENCOUNTER 2023-07-01 09:13 | Emergency (ER) | payer MEDICAID, OTHER ==
[~2023-07-01] VITALS: Ht 182.9 cm; Wt 75.0 kg
[2023-07-01 09:15] VITALS: O2SAT 99
[2023-07-01] MEDS ORDERED: LEVETIRACETAM 1000MG PREMIX 100 ML IV ONE (09:30)
[2023-07-01 09:57] LABS: BASOPHILS % 0.5 % (0.0-2.0); DIFFERENTIAL COMMENT 0; EOSINOPHILS % 0.8 % (0.0-5.0); HEMATOCRIT. 38.1 % (42.0-52.0); HEMOGLOBIN. 12.8 g/dL (14.0-18.0); LYMPHOCYTES % 24.4 % (20.0-50.0); MEAN CORPUSCULAR HEMOGLOBIN 34.5 pg (28.0-32.0); MEAN CORPUSCULAR HGB CONC 33.7 g/dL (31.0-37.0); MEAN CORPUSCULAR VOLUME 102.4 fL (80.0-94.0); MEAN PLATELET VOLUME 8.7 fl (7.4-10.4); MONOCYTES % 5.9 % (2.0-8.0); NEUTROPHILS % 68.4 % (40.0-76.0); PLATELET 385 x1000/uL (130-400); RED BLOOD CELL COUNT 3.73 mill/uL (4.7-6.1); RED CELL DISTRIBUTION WIDTH 14.4 % (11.6-14.6); WHITE BLOOD COUNT 6.1 x1000/uL (4.5-11.0)
[2023-07-01 10:24] LABS: CHLORIDE 111 mEq/L (98-107); INDEX HEMOLYSI 1 (1-3); INDEX ICTERIC 1 (1-4); INDEX LIPEMIC 1 (1-3); SODIUM 142 mEq/L (136-145)
[2023-07-01 10:30] LABS: ALANINE AMINOTRANSFERASE 38 IU/L (13-61); ALBUMIN 3.8 g/dL (3.4-5.0); ASPARTATE AMINOTRANSFERASE 20 IU/L (15-37); BILIRUBIN TOTAL 0.2 mg/dL (0.1-1.0); CALCIUM 8.5 mg/dL (8.5-10.1); CARBON DIOXIDE 20 mEq/L (21-32); CREATININE 0.9 mg/dL (0.6-1.3); ETHANOL BLOOD < 10 mg/dL (<10); GLUCOSE 108 mg/dL (70-105); PROTEIN TOTAL 7.2 g/dL (6.0-8.3); UREA NITROGEN BLOOD 15 mg/dL (7-21)
[2023-07-01 13:59] VITALS: BP 123/72; PULSE 92; RESP 18; TEMP 98.2
== END 2023-07-01 14:23 | disposition home or self-care (01) ==
LOC: ER 09:30
DX: R56.9 Unspecified convulsions (principal)
CPT/HCPCS: 80053; 80320; 85025; 36415; 96365; 99284; J1953; G0480

== ENCOUNTER 2024-03-22 09:36 | Emergency (ER) | payer OTHER ==
[~2024-03-22] VITALS: Ht 177.8 cm; Wt 80.0 kg
[2024-03-22 09:39] VITALS: O2SAT 99
[2024-03-22] MEDS: LEVETIRACETAM 1000MG PREMIX 100 ML IV ONE (10:32)
[2024-03-22 10:52] LABS: HEMATOCRIT. 38.9 % (42.0-52.0); HEMOGLOBIN. 12.7 g/dL (14.0-18.0); MEAN CORPUSCULAR HEMOGLOBIN 33.2 pg (28.0-32.0); MEAN CORPUSCULAR HGB CONC 32.6 g/dL (31.0-37.0); MEAN CORPUSCULAR VOLUME 101.9 fL (80.0-94.0); MEAN PLATELET VOLUME 9.4 fl (7.4-10.4); PLATELET 362 x1000/uL (130-400); RED BLOOD CELL COUNT 3.81 mill/uL (4.7-6.1); RED CELL DISTRIBUTION WIDTH 16.2 % (11.6-14.6); WHITE BLOOD COUNT 12.3 x1000/uL (4.5-11.0)
[2024-03-22 10:53] LABS: DIFFERENTIAL COMMENT 1
[2024-03-22 11:05] LABS: CHLORIDE 114 mEq/L (98-107); POTASSIUM 3.8 mEq/L (3.5-5.1); SODIUM 140 mEq/L (136-145)
[2024-03-22 11:06] LABS: CARBON DIOXIDE 17 mEq/L (21-32)
[2024-03-22 11:07] LABS: CALCIUM 9.6 mg/dL (8.7-10.4)
[2024-03-22 11:11] LABS: GLUCOSE 77 mg/dL (70-105); UREA NITROGEN BLOOD 7 mg/dL (9-23)
[2024-03-22 11:20] LABS: ETHANOL BLOOD < 10 mg/dL (<10)
[2024-03-22 15:14] LABS: ANISOCYTOSIS 1+; PLATELET ESTIMATE NORMAL
[2024-03-22 16:00] VITALS: BP 123/76; PULSE 89; RESP 17; TEMP 98.6
== END 2024-03-22 18:11 | disposition left against medical advice (07) ==
LOC: ER 09:36 → 5WST 12:26 → UNDOADMIN 12:26 → UNDODISIN 20:00
DX: R56.9 Unspecified convulsions (principal)
CPT/HCPCS: 80048; 80320; 85025; 36415; 70450; 96365; 99285; J1953; Z7610; G0480

== ENCOUNTER 2024-07-20 16:37 | Emergency (ER) | payer MEDICAID, OTHER ==
[~2024-07-20] VITALS: Ht 182.9 cm; Wt 86.0 kg
[2024-07-20 16:50] VITALS: BP 140/98; PULSE 100; RESP 18; TEMP 98.8; O2SAT 100
[2024-07-20] MEDS: HYDROCODONE/ACETAMINOPHEN 5/325MG TABLET PO ONE (18:13)
[2024-07-20] MEDS: KETOROLAC 30MG/ML VIAL IM ONE (18:13)
[2024-07-20] MEDS ORDERED: HYDR-4001 MT (18:17)
[2024-07-20] MEDS ORDERED: IBUP-2030 MT (18:17)
== END 2024-07-20 17:56 | disposition home or self-care (01) ==
LOC: ER 16:37
DX: S82.141A Displaced bicondylar fracture of right tibia, initial encounter for closed fracture (principal); Z79.899 Other long term (current) drug therapy; Z86.59 Personal history of other mental and behavioral disorders; W18.30XA Fall on same level, unspecified, initial encounter; Y93.89 Activity, other specified; Y92.89 Other specified places as the place of occurrence of the external cause; Y99.8 Other external cause status
CPT/HCPCS: 73562; 29505; 96372; 99283; J1885; Z7610